=== PATIENT | female | born 1985 | race Caucasian/White ===

== ENCOUNTER 2021-10-13 14:00 | Outpatient (RCR) | payer BC, SELFPAY | END 2021-11-16 08:19 | disposition home or self-care (01) | LOC: HO.PT 14:00 | PROVIDERS: PCP Internal Medicine; Visit Provider Obstetrics & Gynecology | DX: N39.3 Stress incontinence (female) (male) (principal) | CPT/HCPCS: 97110; 97112; 97140; 97161 ==